=== PATIENT | female | born 1965 | race Two or more races ===

== ENCOUNTER 2020-10-27 18:20 | Emergency (ER) | payer OTHER ==
[~2020-10-27] VITALS: Ht 167.6 cm; Wt 88.5 kg
[~2020-10-27 18:20] MED LIST: METFORMIN PO; SAXA5TAB PO; SERT50TA14 PO; SIMV-49 PO
--- NOTE | 2020-10-27 18:43 | NUR ---
Dr Baires at bedside for MSE.
[2020-10-27] MEDS ORDERED: GLYB2.5T4 PO (18:51)
[2020-10-27] MEDS ORDERED: FAMO-132 PO (18:51)
[2020-10-27] MEDS ORDERED: ENAL2.5T17 PO (18:51)
[2020-10-27] MEDS ORDERED: SITA100T PO (18:51)
[2020-10-27] MEDS ORDERED: OMEP20CA15 PO (18:51)
[2020-10-27] MEDS ORDERED: METF-442 PO (18:51)
[2020-10-27] MEDS ORDERED: SIMV-46 PO (18:51)
[2020-10-27 18:54] LABS: *BILIRUBIN,URIN NEGATIVE (NEGATIVE); *BLOOD, URINE TRACE LYSED (NEGATIVE); *CLARITY,URINE CLEAR (CLEAR); *COLOR,URINE YELLOW (YELLOW); *KETONES,URINE NEGATIVE (NEGATIVE); *UROBILINOGEN,URINE 0.2 E.U./dl (NORMAL); LEUKOCYTE ESTERASE ,URINE NEGATIVE (NEGATIVE); NITRITE, URINE NEGATIVE (NEGATIVE); UGLUCOSE NEGATIVE (NEGATIVE)
[2020-10-27 18:55] LABS: BACTERIA,URINE NONE SEEN /HPF (NONE SEEN); SQUAMOUS EPITHELIAL CELL,UR NONE SEEN /HPF (NONE SEEN); WBC,URINE 0-3 /HPF (0-3)
[2020-10-27] MEDS: IBUPROFEN 400 MG TABLET PO ONE (19:51)
[2020-10-27] MEDS: ONDANSETRON ODT 4 MG TAB.RAPDIS SL ONE (19:52)
[2020-10-27] MEDS: HYDROCODONE/APAP 10-325 MG TABLET PO ONE (19:52)
[2020-10-27] MEDS ORDERED: ONDANSETRON ODT 4 MG TAB.RAPDIS ONE (19:55)
[2020-10-27] MEDS ORDERED: IBUPROFEN 400 MG TABLET ONE (19:55)
[2020-10-27] MEDS ORDERED: HYDROCODONE/APAP 10-325 MG TABLET ONE (19:56)
[2020-10-27] MEDS ORDERED: ONDA4TAB5 PO (20:03)
[2020-10-27] MEDS ORDERED: HYDR-4209 PO (20:03)
[2020-10-27 20:10] LABS: BASOPHILS % (AUTO) 0.5 % (0.0-2.0); EOSINOPHILS # (AUTO) 0.3 K/uL (0.0-0.7); EOSINOPHILS % (AUTO) 2.6 % (0.0-7.0); HEMATOCRIT 36.7 % (31.2-41.9); HEMOGLOBIN 12.1 g/dL (10.9-14.3); LYMPHOCYTES # (AUTO) 2.9 K/uL (20.0-40.0); LYMPHOCYTES % (AUTO) 29.7 % (20.5-51.5); MEAN CORPUSCULAR HGB CONC 33 g/dL (32.3-35.6); MEAN CORPUSCULAR VOLUME 73.2 fL (75.5-95.3); MONOCYTES # (AUTO) 0.8 K/uL (2.0-10.0); MONOCYTES % (AUTO) 8.6 % (0.0-11.0); NEUTROPHILS # (AUTO) 5.8 K/uL (1.8-8.9); NEUTROPHILS % (AUTO) 58.6 % (38.5-71.5); PLATELET COUNT (AUTO) 289 K/uL (179-408); RED BLOOD CELL COUNT(AUTO) 5.02 MIL/uL (3.63-4.92); WHITE BLOOD COUNT (AUTO) 9.9 K/uL (3.8-11.8)
[2020-10-27 20:12] LABS: CREATININE 0.8 mg/dL (0.6-1.3); POTASSIUM 3.7 mmol/L (3.5-5.1)
[2020-10-27 20:16] VITALS: BP 132/62
--- NOTE | 2020-10-27 20:16 | NUR ---
Patient discharged to home in stable condition. Written and verbal after care instructions given. Patient verbalizes understanding of instructions. Stressed follow up or return to ER for worsening s/s.
[2020-10-27 20:18] LABS: BILIRUBIN,DIRECT 0.1 mg/dL (0.0-0.2); BILIRUBIN,TOTAL 0.2 mg/dL (0.2-1.0); TOTAL PROTEIN, SERUM 7.2 g/dL (6.4-8.2)
== END 2020-10-27 20:16 | disposition home or self-care (01) ==
LOC: ER 18:24
DX: R10.9 Unspecified abdominal pain (principal); M54.9 Dorsalgia, unspecified; R31.9 Hematuria, unspecified; E11.9 Type 2 diabetes mellitus without complications; E66.9 Obesity, unspecified; Z68.31 Body mass index [BMI] 31.0-31.9, adult; I10 Essential (primary) hypertension; Z79.899 Other long term (current) drug therapy
CPT/HCPCS: 36415; 83690; 85025; A4663; Q0162

== ENCOUNTER 2020-12-21 16:59 | Emergency (ER) | payer OTHER ==
[~2020-12-21] VITALS: Ht 172.7 cm; Wt 88.9 kg
[~2020-12-21 16:59] MED LIST changes: +ENAL2.5T17 PO; +FAMO-132 PO; +GLYB2.5T4 PO; +HYDR-4209 PO; +METF-442 PO; -METFORMIN PO; +OMEP20CA15 PO; +ONDA4TAB5 PO; -SAXA5TAB PO; +SIMV-46 PO; -SIMV-49 PO; +SITA100T PO
[2020-12-21] MEDS ORDERED: IBUPROFEN 600 MG TABLET PO ONE (17:30)
[2020-12-21] MEDS ORDERED: IBUPROFEN 600 MG TABLET ONE (17:54)
--- NOTE | 2020-12-21 18:03 | NUR ---
PT WAS EVALUATED BY DR MORRIS. PT WAS MEDICATED ACCORDING TO ER MD ORDERS. PT TOLERATED TO MEDICATION AND PROCEDURES WITHOUT COMPLICATIONS. PT WAS D/C'd TO HOME. D/C INSTRUCTIONS GIVEN TO THE PT BY DR DINH.
[2020-12-21 18:09] VITALS: BP 135/73
== END 2020-12-21 18:30 | disposition home or self-care (01) ==
LOC: ER 17:01
DX: S92.512A Displaced fracture of proximal phalanx of left lesser toe(s), initial encounter for closed fracture (principal); W22.03XA Walked into furniture, initial encounter; Y92.89 Other specified places as the place of occurrence of the external cause; E11.9 Type 2 diabetes mellitus without complications; F32.9 Major depressive disorder, single episode, unspecified; Z79.84 Long term (current) use of oral hypoglycemic drugs; Z79.899 Other long term (current) drug therapy
CPT/HCPCS: 73630; A4663

== ENCOUNTER 2022-09-03 17:44 | Emergency (ER) | payer OTHER ==
[~2022-09-03] VITALS: Ht 162.6 cm; Wt 72.6 kg
--- NOTE | 2022-09-03 18:34 | NUR ---
Pt c/o pain in left ABD radiating around flank to left lower back. Pt also has slight dizziness and slight nausea, denies CP and SOB.
[2022-09-03] MEDS ORDERED: ONDANSETRON 4 MG/2 ML VIAL IV ONE (18:45)
[2022-09-03] MEDS ORDERED: IV NORMAL SALINE 1000 ML BAG IV ONE (18:45)
[2022-09-03] MEDS ORDERED: HYDROMORPHONE 1 MG/1 ML DISP.SYRIN IV ONE ×2 (18:45→21:30)
[2022-09-03 18:57] LABS: *BILIRUBIN,URIN NEGATIVE (NEGATIVE); *COLOR,URINE YELLOW (YELLOW); *KETONES,URINE TRACE (NEGATIVE); *UROBILINOGEN,URINE 0.2 E.U./dl (NORMAL); LEUKOCYTE ESTERASE ,URINE 1+ (NEGATIVE); NITRITE, URINE NEGATIVE (NEGATIVE); PH,URINE 5.5 (5.0-8.0); UGLUCOSE NEGATIVE (NEGATIVE)
[2022-09-03 19:00] LABS: HEMATOCRIT 38.3 % (31.2-41.9); MEAN CORPUSCULAR HEMOGLOBIN 25.6 uug (24.7-32.8); MEAN CORPUSCULAR VOLUME 75.4 fL (75.5-95.3); PLATELET COUNT (AUTO) 271 K/uL (179-408)
[2022-09-03] MEDS ORDERED: ONDANSETRON 4 MG/2 ML VIAL ONE (19:04)
[2022-09-03] MEDS ORDERED: HYDROMORPHONE 1 MG/1 ML DISP.SYRIN ONE ×2 (19:04→21:51)
[2022-09-03 19:06] LABS: *BLOOD, URINE TRACE (NEGATIVE); *CLARITY,URINE HAZY (CLEAR)
[2022-09-03 19:15] LABS: BACTERIA,URINE MODERATE /HPF (NONE SEEN); SQUAMOUS EPITHELIAL CELL,UR FEW /HPF (NONE SEEN)
[2022-09-03 19:17] LABS: CREATININE 0.7 mg/dL (0.6-1.3); POTASSIUM 3.9 mmol/L (3.5-5.1)
[2022-09-03 19:23] LABS: BILIRUBIN,DIRECT 0.1 mg/dL (0.0-0.2); BILIRUBIN,TOTAL 0.3 mg/dL (0.2-1.0); TOTAL PROTEIN, SERUM 7.1 g/dL (6.4-8.2)
--- NOTE | 2022-09-03 19:30 | NUR ---
Pt a/o 4. NAD noted. Daughter at bedside.
[2022-09-03] MEDS ORDERED: IV NORMAL SALINE 250 ML IV ONE (19:41)
[2022-09-03] MEDS ORDERED: SWABABLE VALVE TRANSFER SET EA MC ONE (19:41)
[2022-09-03] MEDS ORDERED: IOHEXOL 300MG/ML 100 ML INFUS..BTL ONE (19:41)
--- NOTE | 2022-09-03 20:30 | NUR ---
Pt taken down for ct.
--- NOTE | 2022-09-03 20:45 | NUR ---
Pt back from CT.
[2022-09-03] MEDS ORDERED: MAGNESIUM SULFATE/D5W 300 ML ONE (21:18)
[2022-09-03] MEDS: MAGNESIUM SULFATE/D5W 100 ML IV SCH ×3 (21:25→23:03)
[2022-09-03] MEDS ORDERED: SULFAMETH/TRIMETH 800/160 MG TABLET PO ONE (21:30)
[2022-09-03] MEDS ORDERED: SULFAMETH/TRIMETH 800/160 MG TABLET ONE (21:51)
--- NOTE | 2022-09-03 22:00 | NUR ---
Pt resting. NAD noted.
[2022-09-03] MEDS ORDERED: BLOO-1730 MC (23:58)
[2022-09-03] MEDS ORDERED: HYDR-3980 PO (23:58)
[2022-09-03] MEDS ORDERED: SULF1TAB48 PO (23:58)
--- NOTE | 2022-09-04 00:20 | NUR ---
Patient discharged to home in stable condition. A/O x 4. NAD noted. All belongings with patient. Written and verbal after care instructions given. Patient verbalizes understanding of instructions. Stressed follow up or return to ER for worsening s/s.
[2022-09-04 00:21] VITALS: BP 140/99
== END 2022-09-04 00:20 | disposition home or self-care (01) ==
LOC: ER 17:46
DX: M54.9 Dorsalgia, unspecified (principal); R10.9 Unspecified abdominal pain; K76.0 Fatty (change of) liver, not elsewhere classified; I10 Essential (primary) hypertension; E11.9 Type 2 diabetes mellitus without complications; Z79.84 Long term (current) use of oral hypoglycemic drugs; Z79.899 Other long term (current) drug therapy; F32.A Depression, unspecified; I88.0 Nonspecific mesenteric lymphadenitis
CPT/HCPCS: 99285; 74176; 96365; 76705; 96366; 96375; 96361; 80076; 80048; 81001; 83690; 83735; 85025; 36415; 93005; 96376; J3475; J2405; J1170 ×2; J7040; A4663; Q9967

== ENCOUNTER 2024-02-10 15:39 | Emergency (ER) | payer OTHER ==
[~2024-02-10] VITALS: Ht 170.2 cm; Wt 90.7 kg
[~2024-02-10 15:39] MED LIST changes: +AMOX-430 PO; +BLOO-1730 MC; +HYDR-3980 PO; +SULF1TAB48 PO
[2024-02-10] MEDS ORDERED: FLAS1EAC2 TP (16:48)
[2024-02-10] MEDS ORDERED: FLAS1KIT2 TP (16:48)
[2024-02-10 17:35] VITALS: BP 133/75; TEMP 98.2; O2SAT 97
== END 2024-02-10 18:52 | disposition home or self-care (01) ==
LOC: ER 15:40
DX: G58.8 Other specified mononeuropathies (principal); F41.9 Anxiety disorder, unspecified; I10 Essential (primary) hypertension; K21.9 Gastro-esophageal reflux disease without esophagitis; K58.9 Irritable bowel syndrome, unspecified; E78.00 Pure hypercholesterolemia, unspecified; E11.9 Type 2 diabetes mellitus without complications; J20.9 Acute bronchitis, unspecified; F32.A Depression, unspecified; Z79.899 Other long term (current) drug therapy; Z79.891 Long term (current) use of opiate analgesic; Z79.84 Long term (current) use of oral hypoglycemic drugs; Z88.2 Allergy status to sulfonamides
CPT/HCPCS: A4606; A4663